=== PATIENT | female | born 2000 | race Caucasian/White ===

== ENCOUNTER 2021-11-26 10:12 | Emergency (ER) | payer SELFPAY ==
[2021-11-26 11:59] VITALS: BP 120/80; PULSE 114; RESP 20; TEMP 36.6; O2SAT 99; BMI 18.3
--- NOTE | 2021-11-26 12:43 | XR_ITS ---
WS: [id number] Exam: XR ribs RT mn 3V w [id number] Date/Time of Exam: 11/26/2021 12:47 PM Reason For Exam: r rib pain No sign of the right rib fracture. The right lung is fully expanded and clear. No pleural or pulmonar y reactive changes. XR/XR ribs RT mn 3V w [id number] IMPRESSION: 1. Negative right rib study. No pneumothorax.
--- NOTE | 2021-11-26 13:03 | ED_ITS ---
HPI - General Adult General: Chief complaint: General Medical Stated complaint: Rib Pain Time Seen by Provider: 11/26/21 11:59 History of Present Illness: HPI narrative: 21 year old female presents to ER with rib pain. Reports right rib pain began suddenly 2 weeks ago, no known trauma or exacerbating event. Left ribs began hurting 2 days ago. Reports pain is worse with movement and taking deep breaths. Reports sharp stabbing pain. Tylenol helps a little bit. Onset (ago): week(s) Radiation: non-radiation Quality: stabbing and sharp Pain Consistency: constant Relieving factors: medication (Tylenol) Exacerbating factors: movement Associated symptoms: Deny chest pain, cough, dyspnea, fevers/chills, malaise, nausea, rash, short of breath, syncope or vomiting Review of Systems Const: Denies: fever(s), chills, body aches, change in appetite, fatigue or malaise ENMT: Denies: throat pain, ear or mastoid pain, nasal discharge or nasal congestion Card: Denies: chest pain or syncope Resp: Denies: dyspnea GI: Denies: abdominal pain, nausea, vomiting, diarrhea, constipation or bloating : Denies: flank pain, difficulty voiding, dysuria, urinary frequency or urinary urgency Skin/Breast: Denies: rash or pruritus Physical Exam Const: GENERAL APPEARANCE: cooperative and comfortable ORIENTAT ION/CONSCIOUSNESS: Yes awake, Yes oriented to person, Yes oriented to place and Yes oriented to time OTHER: Rib pain with movement. Chest: OTHER: Right and left ribs tender to palpation. Resp: COMMON NORMALS: normal respiratory effort, No retractions, No use of accessory muscles and clear to auscultation bilaterally AUSCULTATION: clear to auscultation bilaterally Cardio: COMMON NORMALS: regular rate, regular rhythm and No murmurs present (Cardio) RATE: regular rate RHYTHM: regular rhythm GI: COMMON NORMALS: Soft to palpation PALPATION: Yes Soft to palpation, No Tenderness to palpation present (GI) and No Guarding due to palpation present (GI) Extremity: COMMON NORMALS: normal to inspection Neuro: SENSORIUM/ORIENTATION: Yes oriented to person, Yes oriented to place and Yes oriented to time Course Vital Signs: Vital signs: Vital Signs Temperature 97.9 F 11/26/21 11:59 Pulse Rate 114 H 11/26/21 11:59 Respiratory Rate 20 H 11/26/21 11:59 Blood Pressure 120/80 11/26/21 11:59 Pulse Oximetry 99 11/26/21 11:59 MDM - General Adult MDM Narrative: Medical decision making narrative: Imaging reviewed. Initially patient claimed pain on the right side then told the nurse it was bilateral I went to x-ray the left side and she declines that really did not hurt that much. Exam is unremarkable we will go ahead and discharge patient home diclofenac. Follow-up as needed Discharge Plan Discharge Patient Disposition: Home Clinical Impression: Rib pain on right side Condition: Stable Prescriptions: New diclofenac sodium 75 mg tablet,delayed release (DR/EC) 75 mg PO Q12H PRN (Reason: pain) Qty: 20 RF: 0 Discharge Orders: Discharge ED (Routine); Ordered 11/26/21 Ordered By: Jamari Fischer Discharge Diet: Usual diet Discharge Activity: Increase activity as tolerated Patient Instructions: Opioid Safety Coding Level of Care Code ED [employer] Fwd Exam Detailed
== END 2021-11-26 14:45 | disposition home or self-care (01) ==
PROVIDERS: Emergency Provider Family Medicine
DX: R07.81 Pleurodynia (principal)
CPT/HCPCS: 71101; 99282